=== PATIENT | male | born 1955 | race Caucasian/White ===

== ENCOUNTER 2021-03-24 16:07 | Emergency (ER) | payer BC ==
[~2021-03-24] VITALS: Ht 185.4 cm; Wt 83.9 kg
[2021-03-24 16:42] VITALS: BP 120/76
[2021-03-24] MEDS ORDERED: NAPR-1180 PO (18:44)
[2021-03-24] MEDS ORDERED: KETOROLAC 60 MG VIAL (30MG/ML) IM ONE (19:00)
== END 2021-03-24 19:02 | disposition home or self-care (01) ==
LOC: EDH 16:07
DX: S93.402A Sprain of unspecified ligament of left ankle, initial encounter (principal); Z79.1 Long term (current) use of non-steroidal anti-inflammatories (NSAID); X58.XXXA Exposure to other specified factors, initial encounter; Y93.89 Activity, other specified; Y92.89 Other specified places as the place of occurrence of the external cause; Y99.8 Other external cause status
CPT/HCPCS: 73610; 96372; 99284; J1885